=== PATIENT | male | born 1980 | race Two or more races ===

== ENCOUNTER → 2020-06-21 | Outpatient (CLI) | payer BC ==
[2020-06-21 16:29] LABS: Basophils # (auto) 0.1 10 ^3/uL (0-0.2); Basophils % (auto) 1.1 % (0.0-2.0); Eosinophils # (auto) 0.2 10 ^3/uL (0-0.8); Eosinophils % (auto) 2.2 % (0.0-7.0); Hematocrit 44.5 % (41.0-53.0); Hemoglobin 14.7 g/dL (13.5-17.5); Lymphocytes # (auto) 3.5 10 ^3/uL (0.4-5.4); Lymphocytes % (auto) 37.7 % (10.0-50.0); Mean Corpuscular Hemoglobin 29.7 pg (28.0-32.0); Mean Corpuscular Hgb Conc. 32.9 g/dL (32.0-36.0); Mean Corpuscular Volume 90.2 fL (80.0-100.0); Monocytes # (auto) 0.6 10 ^3/uL (0-1.3); Monocytes % (auto) 6.3 % (0.0-12.0); Neutrophils # (auto) 4.9 10 ^3/uL (1.6-8.6); Neutrophils % (auto) 52.7 % (37.0-80.0); Nucleated Red Blood Cells % 0.1 %; Platelet Count (auto) 177 10^3/uL (140-450); Red Blood Cells 4.93 10^6/uL (4.5-5.90); Red Cell Distribution Width 13.6 % (11.8-14.3); White Blood Cell 9.2 10^3/uL (4.4-10.8)
[2020-06-21 16:44] LABS: BUN/Creatinine Ratio 16.7; Calcium 8.5 mg/dL (8.5-10.1); Potassium 3.6 mmol/L (3.5-5.1)
[2020-06-21 17:00] LABS: Bilirubin, Total 0.5 mg/dL (0.2-1.0)
== END | disposition home or self-care (01) ==
LOC: LAB 16:16
PROVIDERS: ATTEND Internal Medicine
DX: Z83.3 Family history of diabetes mellitus (principal)
CPT/HCPCS: 36415; 80053; 80061; 83036; 84443; 85025

== ENCOUNTER → 2020-08-04 | Outpatient (CLI) | payer BC ==
[2020-08-04 16:45] LABS: Free T3 3.34 pg/mL (2.3-4.2); Free T4 (Free Thyroxine) 1.14 ng/dL (0.89-1.76)
== END | disposition home or self-care (01) ==
LOC: LAB 15:32
PROVIDERS: ATTEND Internal Medicine
DX: E03.8 Other specified hypothyroidism (principal); E66.9 Obesity, unspecified; R73.03 Prediabetes
CPT/HCPCS: 84439; 84481

== ENCOUNTER 2022-09-30 15:01 | Inpatient (IN) | payer SELFPAY ==
[~2022-09-30] VITALS: Ht 175.3 cm; Wt 107.7 kg
[2022-09-30] MEDS ORDERED: ACETAMINOPHEN 500 MG TAB PO ONE (15:15)
[2022-09-30 15:37] LABS: Basophils # (auto) 0 10 ^3/uL (0-0.2); Basophils % (auto) 0.4 % (0.0-2.0); Eosinophils # (auto) 0 10 ^3/uL (0-0.8); Eosinophils % (auto) 0.3 % (0.0-7.0); Hematocrit 42.9 % (41.0-53.0); Hemoglobin 14.6 g/dL (13.5-17.5); Lymphocytes # (auto) 0.9 10 ^3/uL (0.4-5.4); Lymphocytes % (auto) 8.5 % (10.0-50.0); Mean Corpuscular Hemoglobin 30.4 pg (28.0-32.0); Mean Corpuscular Hgb Conc. 34.2 g/dL (32.0-36.0); Mean Corpuscular Volume 89.1 fL (80.0-100.0); Monocytes # (auto) 0.6 10 ^3/uL (0-1.3); Monocytes % (auto) 6.1 % (0.0-12.0); Neutrophils # (auto) 8.5 10 ^3/uL (1.6-8.6); Neutrophils % (auto) 84.7 % (37.0-80.0); Red Blood Cells 4.81 10^6/uL (4.5-5.90); Red Cell Distribution Width 13.9 % (11.8-14.3); White Blood Cell 10.1 10^3/uL (4.4-10.8)
[2022-09-30] MEDS ORDERED: AZITHROMYCIN 500MG/ 250ML 250 ML IV ONE (16:00)
[2022-09-30] MEDS ORDERED: cefTRIAXone 1GM/50ML D5W 50 ML IV ONE (16:00)
[2022-09-30 16:03] LABS: Albumin 4.2 g/dL (3.4-5.0); BUN/Creatinine Ratio 9.5; Bilirubin, Total 1.8 mg/dL (0.2-1.0); Calcium 8.4 mg/dL (8.5-10.1); Potassium 4.1 mmol/L (3.5-5.1); Total Protein 7.7 g/dL (6.4-8.2)
[2022-09-30] MEDS ORDERED: ACETAMINOPHEN 500 MG TAB PO PRN (23:15)
[2022-09-30] MEDS ORDERED: DOCUSATE SOD 100 MG CAP PO PRN (23:15)
[2022-09-30] MEDS ORDERED: MORPHINE SULFATE INJ 2 MG/ml SYRG IV PRN (23:15)
[2022-09-30] MEDS ORDERED: HYDROcodone-ACET 5/325MG TAB PO PRN (23:15)
[2022-09-30] MEDS ORDERED: NITROGLYCERIN 0.4 MG SL TAB SL PRN (23:15)
[2022-09-30] MEDS ORDERED: ONDANSETRON HCL 4 MG/2 ML VIAL IV PRN (23:15)
[2022-10-01] VITALS (9 sets, daily range): BP systolic 98–116; BP diastolic 51–74
[2022-10-01] MEDS: SODIUM CHLOR 0.9% PF (SALINE LOCK) 10ML VIAL/SYR IV SCH ×3 (06:07→23:09)
[2022-10-01 06:22] LABS: Basophils # (auto) 0 10 ^3/uL (0-0.2); Basophils % (auto) 0.6 % (0.0-2.0); Eosinophils # (auto) 0 10 ^3/uL (0-0.8); Hematocrit 39.6 % (41.0-53.0); Hemoglobin 13.5 g/dL (13.5-17.5); Lymphocytes # (auto) 1.6 10 ^3/uL (0.4-5.4); Lymphocytes % (auto) 20.7 % (10.0-50.0); Mean Corpuscular Hemoglobin 30.3 pg (28.0-32.0); Mean Corpuscular Hgb Conc. 34.2 g/dL (32.0-36.0); Mean Corpuscular Volume 88.7 fL (80.0-100.0); Monocytes # (auto) 0.8 10 ^3/uL (0-1.3); Monocytes % (auto) 10.6 % (0.0-12.0); Neutrophils # (auto) 5.2 10 ^3/uL (1.6-8.6); Neutrophils % (auto) 68.1 % (37.0-80.0); Red Blood Cells 4.46 10^6/uL (4.5-5.90); Red Cell Distribution Width 13.9 % (11.8-14.3); White Blood Cell 7.6 10^3/uL (4.4-10.8)
[2022-10-01 06:44] LABS: Albumin 3.8 g/dL (3.4-5.0); Potassium 3.4 mmol/L (3.5-5.1)
[2022-10-01 06:46] LABS: BUN/Creatinine Ratio 10.4
[2022-10-01 06:48] LABS: Bilirubin, Total 1.5 mg/dL (0.2-1.0); Total Protein 6.9 g/dL (6.4-8.2)
[2022-10-01] MEDS: cefTRIAXone 1GM/50ML D5W 50 ML IV SCH (08:46)
[2022-10-01] MEDS: FAMOTIDINE (10MG/ML) 2ML VL IV SCH ×2 (08:46→23:09)
[2022-10-01] MEDS: MULTIPLE VITAMIN TAB PO SCH (08:47)
[2022-10-01] MEDS: DexAMETHasone SOD PHOS 10MG/1ML VIAL INJ IV SCH (08:47)
[2022-10-01] MEDS: ASPirin 81 mg TAB PO SCH (08:47)
[2022-10-01] MEDS: ENOXAPARIN SOD 40 MG/0.4 ML SYRINGE SC SCH (08:47)
[2022-10-01] MEDS: ASCORBIC ACID 1,000 MG TAB PO SCH (08:48)
[2022-10-01] MEDS: ZINC SULFATE 220mg CAP or TAB PO SCH (08:48)
[2022-10-01] MEDS: CHOLECALCIFEROL (VITD3) 2,000 UNIT CAP/TAB PO SCH (08:48)
[2022-10-01] MEDS: BUDESONIDE (INHALATION) 180 MCG IH IN SCH ×2 (10:55→20:52)
[2022-10-01] MEDS: ALBUTEROL SULF HFA 90MCG INH 200DOSE IN PRN ×2 (10:56→20:52)
[2022-10-01] MEDS: AZITHROMYCIN 500MG/ 250ML 250 ML IV SCH (11:59)
[2022-10-01] MEDS: ATORVASTATIN 20 MG TAB PO SCH (23:10)
[2022-10-02] VITALS (7 sets, daily range): BP systolic 92–110; BP diastolic 51–68
[2022-10-02] MEDS: SODIUM CHLOR 0.9% PF (SALINE LOCK) 10ML VIAL/SYR IV SCH ×3 (05:34→21:44)
[2022-10-02] MEDS: ALBUTEROL SULF HFA 90MCG INH 200DOSE IN PRN ×2 (07:16→18:50)
[2022-10-02] MEDS: cefTRIAXone 1GM/50ML D5W 50 ML IV SCH (09:29)
[2022-10-02] MEDS: ENOXAPARIN SOD 40 MG/0.4 ML SYRINGE SC SCH (09:40)
[2022-10-02] MEDS: FAMOTIDINE (10MG/ML) 2ML VL IV SCH ×2 (09:40→21:44)
[2022-10-02] MEDS: DexAMETHasone SOD PHOS 10MG/1ML VIAL INJ IV SCH (09:41)
[2022-10-02] MEDS: MULTIPLE VITAMIN TAB PO SCH (09:41)
[2022-10-02] MEDS: ASPirin 81 mg TAB PO SCH (09:41)
[2022-10-02] MEDS: ZINC SULFATE 220mg CAP or TAB PO SCH (09:41)
[2022-10-02] MEDS: CHOLECALCIFEROL (VITD3) 2,000 UNIT CAP/TAB PO SCH (09:41)
[2022-10-02] MEDS: ASCORBIC ACID 1,000 MG TAB PO SCH (09:41)
[2022-10-02] MEDS: BUDESONIDE (INHALATION) 180 MCG IH IN SCH ×2 (10:00→18:45)
[2022-10-02] MEDS: AZITHROMYCIN 500MG/ 250ML 250 ML IV SCH (12:24)
[2022-10-02] MEDS: ATORVASTATIN 20 MG TAB PO SCH (21:37)
[2022-10-03 04:36] VITALS: BP 98/56
[2022-10-03] MEDS: SODIUM CHLOR 0.9% PF (SALINE LOCK) 10ML VIAL/SYR IV SCH ×2 (05:38→14:00)
[2022-10-03] MEDS: ALBUTEROL SULF HFA 90MCG INH 200DOSE IN PRN (07:46)
[2022-10-03] MEDS: BUDESONIDE (INHALATION) 180 MCG IH IN SCH (07:46)
[2022-10-03 09:00] VITALS: BP 97/58
[2022-10-03] MEDS: cefTRIAXone 1GM/50ML D5W 50 ML IV SCH (09:00)
[2022-10-03] MEDS: ASPirin 81 mg TAB PO SCH (10:00)
[2022-10-03] MEDS: MULTIPLE VITAMIN TAB PO SCH (10:00)
[2022-10-03] MEDS: ZINC SULFATE 220mg CAP or TAB PO SCH (10:00)
[2022-10-03] MEDS ORDERED: AZITHROMYCIN 250 MG TAB PO SCH (10:00)
[2022-10-03] MEDS: CHOLECALCIFEROL (VITD3) 2,000 UNIT CAP/TAB PO SCH (10:00)
[2022-10-03] MEDS: ASCORBIC ACID 1,000 MG TAB PO SCH (10:00)
[2022-10-03] MEDS: ENOXAPARIN SOD 40 MG/0.4 ML SYRINGE SC SCH (10:00)
[2022-10-03] MEDS: DexAMETHasone SOD PHOS 10MG/1ML VIAL INJ IV SCH (10:00)
[2022-10-03] MEDS ORDERED: ASCO500C49 PO (11:25)
[2022-10-03] MEDS ORDERED: ZINC220C10 PO (11:25)
[2022-10-03] MEDS ORDERED: CHOL1TAB28 PO (11:25)
[2022-10-03] MEDS ORDERED: AZIT500T66 PO (11:25)
[2022-10-03 14:13] VITALS: BP 97/58
== END 2022-10-03 15:00 | disposition home or self-care (01) | DRG 177 ==
LOC: ER 15:01 → TELE 23:22 → TELE-WESTW 23:42
PROVIDERS: ADMIT Nurse Practitioner Family; ATTEND Family Medicine
DX: U07.1 COVID-19 (principal); J12.82 Pneumonia due to coronavirus disease 2019; J96.01 Acute respiratory failure with hypoxia; F17.210 Nicotine dependence, cigarettes, uncomplicated
CPT/HCPCS: 36415; 71045; 80053; 83735; 84484; 85025; 85379; 87426; 93005; 94640; 96365; 96368; G0378; J0696; J1100; J3490